=== PATIENT | male | born 1985 | race Two or more races ===

== ENCOUNTER 2020-05-26 17:37 | Emergency (ER) | payer MEDICAID ==
[~2020-05-26] VITALS: Ht 167.6 cm; Wt 80.0 kg
[2020-05-26 21:31] VITALS: BP 128/91
[2020-05-26 22:02] LABS: BASOPHILS % 0.4 % (0.0-2.0); HEMATOCRIT. 48.1 % (42.0-52.0); HEMOGLOBIN. 16.2 g/dL (14.0-18.0); LYMPHOCYTES % 27.9 % (20.0-50.0); MEAN CORPUSCULAR HEMOGLOBIN 30.2 pg (28.0-32.0); MEAN CORPUSCULAR VOLUME 89.5 fL (80.0-94.0); MEAN PLATELET VOLUME 8.1 fl (7.4-10.4); MONOCYTES % 7.2 % (2.0-8.0); NEUTROPHILS % 63.5 % (40.0-76.0); PLATELET 231 x1000/uL (130-400); RED BLOOD CELL COUNT 5.38 mill/uL (4.7-6.1); RED CELL DISTRIBUTION WIDTH 14.6 % (11.6-14.6)
[2020-05-26 22:09] LABS: CHLORIDE 106 mEq/L (98-107)
[2020-05-26 22:16] LABS: PROTHROMBIN TIME 10.1 sec (9.6-11.0)
[2020-05-27 00:50] LABS: CLARITY URINE CLEAR (CLEAR); COLOR URINE YELLOW (YELLOW); KETONES URINE NEGATIVE (NEGATIVE); LEUKOCYTE ESTERASE URINE TRACE (NEGATIVE); NITRITE URINE POSITIVE (NEGATIVE); OCCULT BLOOD URINE NEGATIVE (NEGATIVE); PROTEIN URINE NEGATIVE (NEGATIVE); SPECIFIC GRAVITY URINE 1.025 (1.005-1.030); UROBILINOGEN URINE 0.2 E.U./dL (0.2-1.0)
[2020-05-27] MEDS ORDERED: AZITHROMYCIN 500 MG TABLET PO NR (01:15)
[2020-05-27] MEDS ORDERED: CEFTRIAXONE SODIUM 250 MG/VIAL IM NR (01:15)
[2020-05-27 01:31] LABS: *AMPHETAMINES SCREEN URINE NEGATIVE (NEGATIVE); *BARBITURATES SCREEN URINE NEGATIVE (NEGATIVE); *BENZODIAZEPINES SCREEN URINE NEGATIVE (NEGATIVE); *COCAINE SCREEN URINE NEGATIVE (NEGATIVE)
[2020-05-27 01:32] LABS: CANNABINOID URINE SCREEN PRESUMTIVE POSITIVE (NEGATIVE); METHADONE URINE SCREEN NEGATIVE (NEGATIVE); PHENCYCLIDINE URINE SCREEN PRESUMTIVE POSITIVE (NEGATIVE)
[2020-05-27 01:34] LABS: OPIATES URINE SCREEN NEGATIVE (NEGATIVE)
== END 2020-05-27 01:45 | disposition home or self-care (01) ==
LOC: ER 17:37
DX: N39.0 Urinary tract infection, site not specified (principal); N50.811 Right testicular pain; F12.10 Cannabis abuse, uncomplicated; F16.10 Hallucinogen abuse, uncomplicated; F17.290 Nicotine dependence, other tobacco product, uncomplicated; Z98.890 Other specified postprocedural states
CPT/HCPCS: 36415; 76870; 80053; 80305; 81003; 83690; 85025; 85610; 93005; 93976; 96372; 99285; 99406; J0696

== ENCOUNTER 2022-04-10 14:54 | Emergency (ER) | payer MEDICAID ==
[~2022-04-10] VITALS: Ht 167.6 cm; Wt 91.0 kg
[2022-04-10] MEDS ORDERED: KETOROLAC 30MG/ML VIAL IV STA (15:50)
[2022-04-10] MEDS ORDERED: SODIUM CHLORIDE 0.9% 1,000 ML IV ONE (16:00)
[2022-04-10 16:05] LABS: CLARITY URINE CLEAR (CLEAR); COLOR URINE YELLOW (YELLOW); KETONES URINE TRACE (NEGATIVE); LEUKOCYTE ESTERASE URINE 1+ (NEGATIVE); NITRITE URINE NEGATIVE (NEGATIVE); OCCULT BLOOD URINE NEGATIVE (NEGATIVE); PH URINE 5.5 (4.5-8.0); PROTEIN URINE NEGATIVE (NEGATIVE); SPECIFIC GRAVITY URINE 1.028 (1.005-1.030); UROBILINOGEN URINE 0.2 E.U./dL (0.2-1.0)
[2022-04-10 16:29] LABS: CHLORIDE 107 mEq/L (98-107)
[2022-04-10 16:50] VITALS: BP 107/59
[2022-04-10 17:10] LABS: BASOPHILS % 0.2 % (0.0-2.0); EOSINOPHILS % 1.1 % (0.0-5.0); HEMATOCRIT. 38.5 % (42.0-52.0); HEMOGLOBIN. 12.8 g/dL (14.0-18.0); MEAN CORPUSCULAR HEMOGLOBIN 28.6 pg (28.0-32.0); MEAN CORPUSCULAR VOLUME 85.7 fL (80.0-94.0); MEAN PLATELET VOLUME 7.9 fl (7.4-10.4); NEUTROPHILS % 62.7 % (40.0-76.0); PLATELET 206 x1000/uL (130-400); RED BLOOD CELL COUNT 4.49 mill/uL (4.7-6.1); RED CELL DISTRIBUTION WIDTH 15.2 % (11.6-14.6)
[2022-04-10] MEDS ORDERED: T3 PO (19:23)
[2022-04-10] MEDS ORDERED: IBUP-2029 MT (19:23)
== END 2022-04-10 19:45 | disposition home or self-care (01) ==
LOC: ER 14:54
DX: K40.90 Unilateral inguinal hernia, without obstruction or gangrene, not specified as recurrent (principal); N30.00 Acute cystitis without hematuria
CPT/HCPCS: 36415; 74176; 80053; 81003; 85025; 87086; 96361; 96374; 99284; J1885; J7030

== ENCOUNTER 2022-11-21 18:27 | Emergency (ER) | payer MEDICAID ==
[~2022-11-21] VITALS: Ht 165.1 cm; Wt 91.0 kg
[~2022-11-21 18:27] MED LIST: IBUP-2029 MT; T3 PO
[2022-11-21 18:36] VITALS: BP 137/50
[2022-11-22] MEDS ORDERED: AMOX1TAB16 MT (00:53)
== END 2022-11-22 01:23 | disposition home or self-care (01) ==
LOC: ER 18:27
DX: K04.7 Periapical abscess without sinus (principal)
CPT/HCPCS: 99283